=== PATIENT | male | born 1940 | race Caucasian/White ===

== ENCOUNTER 2017-01-19 14:16 | Inpatient (IN) | payer MEDICARE ==
[2017-01-19] VITALS (8 sets, daily range): BP systolic 121–158; BP diastolic 58–72; PULSE 77–118; RESP 18–36; TEMP 98.6–98.7; O2SAT 77–100
[~2017-01-19] VITALS: Ht 170.2 cm; Wt 87.5 kg
[~2017-01-19 14:16] MED LIST: ALBU8I INH; ASPI325T PO; DILT31TA PO; FLON0.053; IPRA17I INH; KCL20 PO; METO25 PO; PRED20 PO; RIVA20 PO; Z.0.OXYGEN INH
[2017-01-19] MEDS ORDERED: methylPREDNISolone SOD SUCC 125 MG/2 ML VIAL IVP ONE (14:30)
--- NOTE | 2017-01-19 14:46 | PD ---
HPI Chief Complaint: Respiratory Distress Time Seen by Provider: 14:22 Travel History International Travel<30 days: No Contact w/Intl Traveler<30days: No Traveled to known affect area: No History of Present Illness HPI Patient is a 76-year-old male with history of hypertension, A. fib, COPD, presents to emergency room for evaluation of shortness of breath. Patient reports that for the past 5 days, he has been short of breath at rest as well as on exertion. he reports that he has had a nonproductive cough with no fevers or chills. Patient at this time, reports that "I'm not feeling well." PFSH Past Medical History Arthritis: Yes Autoimmune Disease: No Blood Disorders: No Heart Rhythm Problems: No Cancer: No Cardiovascular Problems: Yes High Cholesterol: No Chest Pain: No Congestive Heart Failure: No Endocrine: No Genitourinary: Yes (KIDNEY STONES) Hypertension: Yes Immune Disorder: No Kidney Stones: Yes Musculoskeletal: Yes (BILATERAL KNEE ) Neurologic: No Psychiatric: No Reproductive: No Respiratory: Yes (SOB) Past Surgical History AICD: No Arteriovenous Shunt: No Insulin Pump: No Joint Replacement: No Pacemaker: No Social History Alcohol Use: Yes Tobacco Use: No Substance Use: No Allergies-Medications (Allergen,Severity, Reaction): Coded Allergies: Pneumococcal Vaccine (Verified Adverse Reaction, Mild, Swelling, 08/16/13) UPPER FOREARM AND ELBOW BECAME SWOLLEN AFTER BEING VACCIANTED Reported Meds & Prescriptions Reported Meds & Active Scripts Active Reported Vitamin D3 (Cholecalciferol) 1,000 Unit Tab 1,000 Units PO DAILY Tamsulosin (Tamsulosin HCl) 0.4 Mg Cap 0.4 Mg PO HS Sodium Bicarbonate 650 Mg Tab 650 Mg PO BIDPC Prednisone 20 Mg Tab 20 Mg PO DAILY Metoprolol Tartrate 50 Mg Tab 50 Mg PO BID Metoprolol Tartrate 50 Mg Tab 50 Mg PO DAILY Magnesium Oxide 400 Mg Cap Unknown Dose Losartan (Losartan Potassium) 50 Mg Tab 50 Mg PO DAILY Levothyroxine (Levothyroxine Sodium) 50 Mcg Tab 50 Mcg PO DAILY Furosemide 40 Mg Tab 40 Mg PO DAILY Atorvastatin (Atorvastatin Calcium) 40 Mg Tab 40 Mg PO HS Amlodipine (Amlodipine Besylate) 5 Mg Tab 5 Mg PO DAILY Aspirin 325 Mg Tab 325 Mg PO DAILY Review of Systems General / Constitutional: No: Fever Eyes: No: Visual changes HENT: No: Headaches Cardiovascular: No: Chest Pain or Discomfort Respiratory: Positive: Cough, Shortness of Breath, Wheezing Gastrointestinal: No: Abdominal Pain Genitourinary: No: Dysuria Musculoskeletal: No: Pain Skin: No Rash Neurologic: No: Weakness Psychiatric: No: Depression Endocrine: No: Polydipsia Hematologic/Lymphatic: No: Easy Bruising Physical Exam Narrative GENERAL: Moderate distress SKIN: Focused skin assessment warm/dry. HEAD: Atraumatic. Normocephalic. EYES: Pupils equal and round. No scleral icterus. No injection or drainage. ENT: No nasal bleeding or discharge. Mucous membranes pink and moist. NECK: Trachea midline. No JVD. CARDIOVASCULAR: Regular rate and rhythm. No murmur appreciated. RESPIRATORY: No accessory muscle use. Clear to auscultation. Scattered wheezing , patient with a pulse ox of 77% on room air GASTROINTESTINAL: Abdomen soft, non-tender, nondistended. Hepatic and splenic margins not palpable. MUSCULOSKELETAL: No obvious deformities. No clubbing. No cyanosis. No edema. NEUROLOGICAL: Awake and alert. No obvious cranial nerve deficits. Motor grossly within normal limits. Normal speech. PSYCHIATRIC: Appropriate mood and affect; insight and judgment normal. Data Data Last Documented VS Vital Signs Date Time Temp Pulse Resp B/P Pulse Ox O2 Delivery O2 Flow Rate FiO2 01/19/17 14:55 100 50 01/19/17 14:38 138/72 01/19/17 14:38 Nasal Cannula 3 01/19/17 14:31 98.7 104 30 Orders Complete Blood Count With Diff (01/19/17 14:30) Comprehensive Metabolic Panel (01/19/17 14:30) B-Type Natriuretic Peptide (01/19/17 14:30) Act Partial Throm Time (Ptt) (01/19/17 14:30) Prothrombin Time / Inr (Pt) (01/19/17 14:30) Magnesium (Mg) (01/19/17 14:30) Ckmb (Isoenzyme) Profile (01/19/17 14:30) Troponin I (01/19/17 14:30) Arterial Blood Gas (Abg) (01/19/17 14:30) Urinalysis - C+S If Indicated (01/19/17 14:30) Influenzae A/B Antigen (01/19/17 14:30) Blood Culture (01/19/17 14:30) Iv Access Insert/Monitor (01/19/17 14:30) Electrocardiogram (01/19/17 14:30) Ecg Monitoring (01/19/17 14:30) Oximetry (01/19/17 14:30) Oxygen Administration (01/19/17 14:30) Chest, Single Ap (01/19/17 14:30) Sodium Chloride 0.9% Flush (Ns Flush) (01/19/17 14:30) Methylprednisolone So Succ Inj (Solumedr (01/19/17 14:30) Albuterol-Ipratropium Neb (Duoneb Neb) (01/19/17 14:30) Resp Bipap / Cpap Non Invas Vt (01/19/17 14:30) Lactic Acid Sepsis Protocol (01/19/17 14:39) Azithromycin Inj (Zithromax Inj) (01/19/17 15:45) Ceftriaxone Inj (Rocephin Inj) (01/19/17 15:45) Ventilation & Perfusion Scan (01/19/17 ) Us Leg Venous Doppler Bilat (01/19/17 ) Admit Order (Ed Use Only) (01/19/17 16:56) Labs Laboratory Tests Test 01/19/17 01/19/17 14:35 14:38 White Blood Count 14.4 TH/MM3 Red Blood Count 3.91 MIL/MM3 Hemoglobin 11.6 GM/DL Hematocrit 35.6 % Mean Corpuscular Volume 90.9 FL Mean Corpuscular Hemoglobin 29.6 PG Mean Corpuscular Hemoglobin 32.6 % Concent Red Cell Distribution Width 20.6 % Platelet Count 365 TH/MM3 Mean Platelet Volume 8.6 FL Neutrophils (%) (Auto) 89.0 % Lymphocytes (%) (Auto) 3.7 % Monocytes (%) (Auto) 4.3 % Eosinophils (%) (Auto) 2.1 % Basophils (%) (Auto) 0.9 % Neutrophils # (Auto) 12.9 TH/MM3 Lymphocytes # (Auto) 0.5 TH/MM3 Monocytes # (Auto) 0.6 TH/MM3 Eosinophils # (Auto) 0.3 TH/MM3 Basophils # (Auto) 0.1 TH/MM3 CBC Comment DIFF FINAL Differential Comment Prothrombin Time 12.3 SEC Prothromb Time International 1.1 RATIO Ratio Activated Partial 34.0 SEC Thromboplast Time Sodium Level 141 MEQ/L Potassium Level 3.5 MEQ/L Chloride Level 108 MEQ/L Carbon Dioxide Level 21.4 MEQ/L Anion Gap 12 MEQ/L Blood Urea Nitrogen 35 MG/DL Creatinine 2.13 MG/DL Estimat Glomerular Filtration 31 ML/MIN Rate Random Glucose 104 MG/DL Lactic Acid Level 2.2 mmol/L Calcium Level 8.7 MG/DL Magnesium Level 2.2 MG/DL Total Bilirubin 2.8 MG/DL Aspartate Amino Transf 19 U/L (AST/SGOT) Alanine Aminotransferase 24 U/L (ALT/SGPT) Alkaline Phosphatase 96 U/L Total Creatine Kinase 22 U/L Troponin I 0.02 NG/ML B-Type Natriuretic Peptide 134 PG/ML Total Protein 6.4 GM/DL Albumin 2.5 GM/DL Blood Gas Puncture Site RT RADIAL Blood Gas Patient Temperature 98.6 Blood Gas HCO3 19 mmol/L Blood Gas Base Excess -3.4 mmol/L Blood Gas Oxygen Saturation 80 % Arterial Blood pH 7.54 Arterial Blood Partial 22 mmHg Pressure CO2 Arterial Blood Partial 43 mmHG Pressure O2 Arterial Blood Oxygen Content 13.5 Vol % Arterial Blood 2.7 % Carboxyhemoglobin Arterial Blood Methemoglobin 0.7 % Blood Gas Hemoglobin 12.0 G/DL Oxygen Delivery Device ROOM AIR Blood Gas Inspired Oxygen 21 % MDM Medical Decision Making Medical Screen Exam Complete: Yes Emergency Medical Condition: Yes Interpretation(s) EKG at 1435: Sinus tach at 114bpm, qt/qtc: 339/407, no acute st or t wave changes Vital Signs Date Time Temp Pulse Resp B/P Pulse Ox O2 Delivery O2 Flow Rate FiO2 01/19/17 14:38 138/72 01/19/17 14:38 95 Nasal Cannula 3 01/19/17 14:35 95 Nasal Cannula 3 01/19/17 14:31 98.7 104 30 138/72 95 01/19/17 14:19 98.6 118 36 158/72 77 Room Air Differential Diagnosis Differential includes COPD, pneumonia, CHF, PE, arrhythmia, ACS Narrative Course Patient is a 76-year-old male who presents to emergency with complaints of shortness of breath with past 5 days. Patient presents to emergency room with a pulse ox of 77% on room air. Patient was placed on 3 liters nasal cannula - pulse ox did go up to 97%. Patient was placed on a cardiac sonographer upon arrival to the emergency room. X-ray of the chest ordered. Lab work as well as ABG, blood cultures and lactate ordered. Laboratory Tests Test 01/19/17 14:38 Blood Gas Puncture Site RT RADIAL Blood Gas Patient Temperature 98.6 Blood Gas HCO3 19 mmol/L (22-26) Blood Gas Base Excess -3.4 mmol/L (-2-2) Blood Gas Oxygen Saturation 80 % (90-100) Arterial Blood pH 7.54 (7.380-7.420) Arterial Blood Partial 22 mmHg (38-42) Pressure CO2 Arterial Blood Partial 43 mmHG Pressure O2 (61-120) Arterial Blood Oxygen Content 13.5 Vol % (12.0-20.0) Arterial Blood 2.7 % (0-4) Carboxyhemoglobin Arterial Blood Methemoglobin 0.7 % (0-2) Blood Gas Hemoglobin 12.0 G/DL (12.0-16.0) Oxygen Delivery Device ROOM AIR Blood Gas Inspired Oxygen 21 % Patient hypoxic with a paO2 43, oxy sat 80%, pH 7.54, pCO2 22, patient placed on bipap Patient feeling much better on bipap Last Impressions Chest X-Ray 01/19/17 1430 Signed Impressions: Service Date/Time: Thursday, January 19, 2017 14:34 - CONCLUSION: Cardiomegaly with bibasilar opacities potentially related to pulmonary edema. Juaquin Kirkpatrick Jr., MD X-ray of the chest shows cardiomegaly with bibasilar opacities potentially to pulmonary edema. Given patient's cough for the past 5 days, I do think the patient has pneumonia. Patient has been pancultured, will give a dose of azithromycin as well as Rocephin. Laboratory Tests Test 01/19/17 01/19/17 14:35 14:38 White Blood Count 14.4 TH/MM3 (4.0-11.0) Red Blood Count 3.91 MIL/MM3 (4.50-5.90) Hemoglobin 11.6 GM/DL (13.0-17.0) Hematocrit 35.6 % (39.0-51.0) Mean Corpuscular Volume 90.9 FL (80.0-100.0) Mean Corpuscular Hemoglobin 29.6 PG (27.0-34.0) Mean Corpuscular Hemoglobin 32.6 % Concent (32.0-36.0) Red Cell Distribution Width 20.6 % (11.6-17.2) Platelet Count 365 TH/MM3 (150-450) Mean Platelet Volume 8.6 FL (7.0-11.0) Neutrophils (%) (Auto) 89.0 % (16.0-70.0) Lymphocytes (%) (Auto) 3.7 % (9.0-44.0) Monocytes (%) (Auto) 4.3 % (0.0-8.0) Eosinophils (%) (Auto) 2.1 % (0.0-4.0) Basophils (%) (Auto) 0.9 % (0.0-2.0) Neutrophils # (Auto) 12.9 TH/MM3 (1.8-7.7) Lymphocytes # (Auto) 0.5 TH/MM3 (1.0-4.8) Monocytes # (Auto) 0.6 TH/MM3 (0-0.9) Eosinophils # (Auto) 0.3 TH/MM3 (0-0.4) Basophils # (Auto) 0.1 TH/MM3 (0-0.2) CBC Comment DIFF FINAL Differential Comment Prothrombin Time 12.3 SEC (9.8-11.6) Prothromb Time International 1.1 RATIO Ratio Activated Partial 34.0 SEC Thromboplast Time (24.3-30.1) Sodium Level 141 MEQ/L (136-145) Potassium Level 3.5 MEQ/L (3.5-5.1) Chloride Level 108 MEQ/L (98-107) Carbon Dioxide Level 21.4 MEQ/L (21.0-32.0) Anion Gap 12 MEQ/L (5-15) Blood Urea Nitrogen 35 MG/DL (7-18) Creatinine 2.13 MG/DL (0.60-1.30) Estimat Glomerular Filtration 31 ML/MIN (>89) Rate Random Glucose 104 MG/DL (74-106) Lactic Acid Level 2.2 mmol/L (0.4-2.0) Calcium Level 8.7 MG/DL (8.5-10.1) Magnesium Level 2.2 MG/DL (1.5-2.5) Total Bilirubin 2.8 MG/DL (0.2-1.0) Aspartate Amino Transf 19 U/L (15-37) (AST/SGOT) Alanine Aminotransferase 24 U/L (12-78) (ALT/SGPT) Alkaline Phosphatase 96 U/L (45-117) Total Creatine Kinase 22 U/L (39-308) Troponin I 0.02 NG/ML (0.02-0.05) Total Protein 6.4 GM/DL (6.4-8.2) Albumin 2.5 GM/DL (3.4-5.0) Blood Gas Puncture Site RT RADIAL Blood Gas Patient Temperature 98.6 Blood Gas HCO3 19 mmol/L (22-26) Blood Gas Base Excess -3.4 mmol/L (-2-2) Blood Gas Oxygen Saturation 80 % (90-100) Arterial Blood pH 7.54 (7.380-7.420) Arterial Blood Partial 22 mmHg (38-42) Pressure CO2 Arterial Blood Partial 43 mmHG Pressure O2 (61-120) Arterial Blood Oxygen Content 13.5 Vol % (12.0-20.0) Arterial Blood 2.7 % (0-4) Carboxyhemoglobin Arterial Blood Methemoglobin 0.7 % (0-2) Blood Gas Hemoglobin 12.0 G/DL (12.0-16.0) Oxygen Delivery Device ROOM AIR Blood Gas Inspired Oxygen 21 % Last Impressions Chest X-Ray 01/19/17 1430 Signed Impressions: Service Date/Time: Thursday, January 19, 2017 14:34 - CONCLUSION: Cardiomegaly with bibasilar opacities potentially related to pulmonary edema. Juaquin Kirkpatrick Jr., MD WBC 14 4, hemoglobin 11.6, hematocrit 35.6, platelets 365 Sodium 141, potassium 3.5, BUN 35, creatinine 2.13 Lactic acid 2.2 Patient is hypoxic and this could be from pneumonia. Pulmonary embolism is still within the differential. Given his elevated cr, vq scan as well as doppler us of legs ordered. Will hold on anticoagulation at this time Patient has been treated for pneumonia at this time Doppler us of legs: no evidence of dvt Critical Care Narrative Aggregate critical care time was 30 minutes. Time to perform other separately billable procedures was not included in the critical care time. My time did not include minutes spent treating any other patients simultaneously or on activities that did not directly contribute to the patient's treatment. The services I provided to this patient were to treat and/or prevent clinically significant deterioration that could result in: , decompensation, deterioration I provided critical care services requiring my management, as noted below: Chart data review, documentation time, medication orders and management, vital sign assessments/reviewing monitor data, ordering and reviewing lab tests, ordering and interpreting/reviewing x-rays and diagnostic studies, care of the patient and discussion of the patient with the admitting physicians. Physician Communication Physician Communication case reviewed with dr. logan who accepts pt to service Diagnosis Primary Impression: Hypoxia Additional Impression: Pneumonia Admitting Information Admitting Physician Requests: Admit Lindsey Becker DO Jan 19, 2017 14:46
[2017-01-19 14:48] LABS: BLOOD GAS BASE EXCESS -3.4 mmol/L (-2-2); BLOOD GAS CARBOXYHEMOGLOBIN 2.7 % (0-4); BLOOD GAS HCO3 19 mmol/L (22-26); BLOOD GAS METHEMOGLOBIN 0.7 % (0-2); BLOOD GAS O2 HGB SATURATION 80 % (90-100); BLOOD GAS OXYGEN CONTENT 13.5 Vol % (12.0-20.0); BLOOD GAS PCO2 22 mmHg (38-42); BLOOD GAS PO2 43 mmHG (61-120); CRITICAL VALUE YES; DRAW SITE RT RADIAL; FIO2 21 %; NUMBER OF ARTERIAL PUNCTURES 1; OXYGEN DEVICE ROOM AIR; STAT YES; TEMP CORR TO 98.6
[2017-01-19] MEDS: RESP: ALBUTEROL 2.5 MG/IPRATROPIUM 0.5 MG NEB (SCH) INH ×2 (14:57→14:58)
[2017-01-19] MEDS: SODIUM CHLORIDE 0.9% FLUSH 10 ML FLUSH IVF PRN ×3 (15:24→17:22)
--- NOTE | 2017-01-19 15:28 | RADRPT ---
EXAM DATE/TIME: 01/19/2017 14:34 [facility] COMPARISON: No previous studies available for comparison. INDICATIONS : Short of breath. MEDICAL HISTORY : Vasculitis SURGICAL HISTORY : None. ENCOUNTER: Initial ACUITY: 1 week PAIN SCORE: 0/10 LOCATION: Bilateral chest FINDINGS: A single portable frontal view the chest shows patchy bibasilar infiltrates which are mixed interstit ial and intra-alveolar. No effusions. Heart is mildly enlarged with a left ventricular prominence. Abhilash ny structures are unremarkable. CONCLUSION: Cardiomegaly with bibasilar opacities potentially related to pulmonary edema. Juaquin Kirkpatrick Jr., MD on January 19, 2017 at 15:26 Board Certified Radiologist. This report was verified electronically.
[2017-01-19] MEDS ORDERED: cefTRIAXone INJ 1,000 MG in SODIUM CHLORIDE 0.9% INJ 100 ML IV ONE (15:45)
[2017-01-19] MEDS ORDERED: AZITHROMYCIN INJ 500 MG in SODIUM CHLOR 0.9% 250 ML INJ 250 ML IV ONE (15:45)
[2017-01-19 15:58] LABS: AUTOMATED NEUTROPHIL # 12.9 TH/MM3 (1.8-7.7); BASOPHIL # 0.1 TH/MM3 (0-0.2); BASOPHIL % 0.9 % (0.0-2.0); EOSINOPHIL # 0.3 TH/MM3 (0-0.4); EOSINOPHIL % 2.1 % (0.0-4.0); HEMATOCRIT 35.6 % (39.0-51.0); HEMO FLAGS DIFF FINAL; LYMPH % 3.7 % (9.0-44.0); LYMPHOCYTE # 0.5 TH/MM3 (1.0-4.8); MEAN CELL VOLUME 90.9 FL (80.0-100.0); MEAN CORPUSCULAR HEMOGLOBIN 29.6 PG (27.0-34.0); MEAN CORPUSCULAR HGB CONC 32.6 % (32.0-36.0); MONO % 4.3 % (0.0-8.0); PLATELET COUNT 365 TH/MM3 (150-450); RED BLOOD COUNT 3.91 MIL/MM3 (4.50-5.90); RED CELL DISTRIBUTION WIDTH 20.6 % (11.6-17.2); WHITE BLOOD COUNT 14.4 TH/MM3 (4.0-11.0)
[2017-01-19 16:13] LABS: ALT (GPT) 24 U/L (12-78); ANION GAP 12 MEQ/L (5-15); AST (GOT) 19 U/L (15-37); BICARBONATE 21.4 MEQ/L (21.0-32.0); BLOOD UREA NITROGEN 35 MG/DL (7-18); CHLORIDE 108 MEQ/L (98-107); GLOMERULAR FILTRATION RATE 31 ML/MIN (>89); MAGNESIUM 2.2 MG/DL (1.5-2.5); POTASSIUM 3.5 MEQ/L (3.5-5.1); SODIUM (NA) 141 MEQ/L (136-145)
[2017-01-19 16:14] LABS: INTERNATIONAL NORMALIZED RATIO 1.1 RATIO; PROTHROMBIN TIME - PATIENT 12.3 SEC (9.8-11.6)
[2017-01-19 16:16] LABS: ALKALINE PHOSPHATASE 96 U/L (45-117); TOTAL BILIRUBIN ADULT 2.8 MG/DL (0.2-1.0)
[2017-01-19 16:20] LABS: CREATINE KINASE 22 U/L (39-308)
[2017-01-19] MEDS ORDERED: FURO40TA PO (16:34)
[2017-01-19] MEDS ORDERED: LOSA50TA PO (16:34)
[2017-01-19] MEDS ORDERED: AMLO5TAB2 PO (16:34)
[2017-01-19] MEDS ORDERED: LEVO50TA4 PO (16:34)
[2017-01-19] MEDS ORDERED: ASPI325T PO (16:34)
[2017-01-19] MEDS ORDERED: ATOR40TA16 PO (16:34)
[2017-01-19] MEDS ORDERED: SODI650T PO (16:35)
[2017-01-19] MEDS ORDERED: METO50TA PO ×2 (16:35)
[2017-01-19] MEDS ORDERED: PRED20 PO (16:35)
[2017-01-19] MEDS ORDERED: MAGN400C2 (16:35)
[2017-01-19] MEDS ORDERED: TAMS0.4C4 PO (16:35)
[2017-01-19] MEDS ORDERED: VITA100064 PO (16:35)
[2017-01-19 17:23] LABS: LACTIC ACID GHOST NOT REPORTABLE
--- NOTE | 2017-01-19 17:50 | RADRPT ---
EXAM DATE/TIME: 01/19/2017 17:12 [facility] COMPARISON: No previous studies available for comparison. INDICATIONS : Bilateral leg pain and shortness of breath. MEDICAL HISTORY : Hypertension. Chronic obstructive pulmonary disease. Shortness of breath. Dyspea. Kidney stones. Arthritis. Atrial fibrillation. SURGICAL HISTORY : None. ENCOUNTER: Initial ACUITY: 2 day PAIN SCORE: 7/10 LOCATION: Bilateral legs. TECHNIQUE: Venous ultrasound of the left and right leg was performed from the inguinal ligament to the proximal calf. Real-time, color Doppler and spectral tracing, compression and augmentation techniques were us ed. FINDINGS: RIGHT LEG: There is normal compressibility of the deep venous system from the inguinal region to the proximal ca lf. No echogenic clot is seen in the lumen of the common femoral, femoral, popliteal, and posterior tibial veins. There is a normal response of the venous system to proximal and distal augmentation an d respiration. LEFT LEG: There is normal compressibility of the deep venous system from the inguinal region to the proximal ca lf. No echogenic clot is seen in the lumen of the common femoral, femoral, popliteal, and posterior tibial veins. There is a normal response of the venous system to proximal and distal augmentation an d respiration. CONCLUSION: No evidence of deep venous thrombosis within the bilateral lower extremities. Roverto Cespedes MD on January 19, 2017 at 17:48 Board Certified Radiologist. This report was verified electronically.
--- NOTE | 2017-01-19 18:13 | HHI.HP ---
HPI Service [facility] Primary Care Physician Maciej Garvin Admission Diagnosis Sepsis with hypoxia Diagnoses: (1) Community acquired bacterial pneumonia (2) Sepsis (3) Respiratory failure with hypoxia (4) Respiratory failure, acute Chief Complaint: Shortness of breath Travel History International Travel<30 Days: No Contact w/Intl Traveler <30 Da: No Traveled to Known Affected Are: No Sepsis Criteria SIRS Criteria (2 or more): Heart rate over 90, WBC > 54293, < 4000 or > 10% bands Sepsis Criteria (SIRS+source): Infect source susp/known Severe Sepsis (+one): Lactate >2 Criteria Outcome: Meets severe sepsis criteria History of Present Illness 76 yrs old man with a PMH of COPD, HTN came to the ED for evaluation of worsening symptoms of shortness of breath x several weeks duration associated with dry nonproductive cough without any associated chest pain or febrile episode.Patient denies any BLE edema. CXR in the ED reveals Cardiomegaly with bibasilar opacities potentially related to pulmonary edema. Vitals on admission T 98.6, HR 118, RR 36, BP 158/72 and 77% on RA. Abnormal labs include BNP 134, Lactic acid 2.2, WBC of 14.4 and Bun/Cr 35/2.13. In the ED patient was placed on a BIPAP with improvement of dyspnea Review of Systems Except as stated in HPI: all other systems reviewed are Neg Past Family Social History Past Medical History Arthritis: Yes Cardiovascular Problems: Yes Genitourinary: Yes (KIDNEY STONES) Hypertension: Yes Kidney Stones: Yes Musculoskeletal: Yes (BILATERAL KNEE ) Past Surgical History No previous surgeries Reported Medications Vitamin D3 (Cholecalciferol) 1,000 Unit Tab 1,000 Units PO DAILY Tamsulosin (Tamsulosin HCl) 0.4 Mg Cap 0.4 Mg PO HS Sodium Bicarbonate 650 Mg Tab 650 Mg PO BIDPC Prednisone 20 Mg Tab 20 Mg PO DAILY Metoprolol Tartrate 50 Mg Tab 50 Mg PO BID Metoprolol Tartrate 50 Mg Tab 50 Mg PO DAILY Magnesium Oxide 400 Mg Cap Unknown Dose Losartan (Losartan Potassium) 50 Mg Tab 50 Mg PO DAILY Levothyroxine (Levothyroxine Sodium) 50 Mcg Tab 50 Mcg PO DAILY Furosemide 40 Mg Tab 40 Mg PO DAILY Atorvastatin (Atorvastatin Calcium) 40 Mg Tab 40 Mg PO HS Amlodipine (Amlodipine Besylate) 5 Mg Tab 5 Mg PO DAILY Aspirin 325 Mg Tab 325 Mg PO DAILY Allergies: Coded Allergies: Pneumococcal Vaccine (Verified Adverse Reaction, Mild, Swelling, 08/16/13) UPPER FOREARM AND ELBOW BECAME SWOLLEN AFTER BEING VACCIANTED Family History Denies any family history of heart disease Social History Alcohol Use: Yes Tobacco Use: No Substance Use: No Physical Exam Vital Signs Vital Signs Date Time Temp Pulse Resp B/P Pulse Ox O2 Delivery O2 Flow Rate FiO2 01/19/17 14:55 100 50 01/19/17 14:38 138/72 01/19/17 14:38 95 Nasal Cannula 3 01/19/17 14:35 95 Nasal Cannula 3 01/19/17 14:31 98.7 104 30 138/72 95 01/19/17 14:19 98.6 118 36 158/72 77 Room Air Physical Exam GENERAL: This is a well-nourished, well-developed patient, in no apparent distress. SKIN: No rashes, ecchymoses or lesions. Cool and dry. HEAD: Atraumatic. Normocephalic. No temporal or scalp tenderness. EYES: Pupils equal round and reactive. Extraocular motions intact. No scleral icterus. No injection or drainage. ENT: Nose without bleeding, purulent drainage or septal hematoma. Throat without erythema, tonsillar hypertrophy or exudate. Uvula midline. Airway patent. NECK: Trachea midline. No JVD or lymphadenopathy. Supple, nontender, no meningeal signs. CARDIOVASCULAR: Regular rate and rhythm with II/ LAZARUS RESPIRATORY: Clear to auscultation. Breath sounds equal bilaterally. No wheezes , rales, or rhonchi. GASTROINTESTINAL: Abdomen soft, non-tender, nondistended. No hepato-splenomegaly , or palpable masses. No guarding. MUSCULOSKELETAL: Extremities without clubbing, cyanosis, or edema. No joint tenderness, effusion, or edema noted. No calf tenderness. Negative Homans sign bilaterally. NEUROLOGICAL: Awake and alert. Cranial nerves II through XII intact. Motor and sensory grossly within normal limits. Five out of 5 muscle strength in all muscle groups. Normal speech. Laboratory Laboratory Tests Test 01/19/17 01/19/17 14:35 14:38 White Blood Count 14.4 Red Blood Count 3.91 Hemoglobin 11.6 Hematocrit 35.6 Mean Corpuscular Volume 90.9 Mean Corpuscular Hemoglobin 29.6 Mean Corpuscular Hemoglobin 32.6 Concent Red Cell Distribution Width 20.6 Platelet Count 365 Mean Platelet Volume 8.6 Neutrophils (%) (Auto) 89.0 Lymphocytes (%) (Auto) 3.7 Monocytes (%) (Auto) 4.3 Eosinophils (%) (Auto) 2.1 Basophils (%) (Auto) 0.9 Neutrophils # (Auto) 12.9 Lymphocytes # (Auto) 0.5 Monocytes # (Auto) 0.6 Eosinophils # (Auto) 0.3 Basophils # (Auto) 0.1 CBC Comment DIFF FINAL Differential Comment Prothrombin Time 12.3 Prothromb Time International 1.1 Ratio Activated Partial 34.0 Thromboplast Time Sodium Level 141 Potassium Level 3.5 Chloride Level 108 Carbon Dioxide Level 21.4 Anion Gap 12 Blood Urea Nitrogen 35 Creatinine 2.13 Estimat Glomerular Filtration 31 Rate Random Glucose 104 Lactic Acid Level 2.2 Calcium Level 8.7 Magnesium Level 2.2 Total Bilirubin 2.8 Aspartate Amino Transf 19 (AST/SGOT) Alanine Aminotransferase 24 (ALT/SGPT) Alkaline Phosphatase 96 Total Creatine Kinase 22 Troponin I 0.02 B-Type Natriuretic Peptide 134 Total Protein 6.4 Albumin 2.5 Blood Gas Puncture Site RT RADIAL Blood Gas Patient Temperature 98.6 Blood Gas HCO3 19 Blood Gas Base Excess -3.4 Blood Gas Oxygen Saturation 80 Arterial Blood pH 7.54 Arterial Blood Partial 22 Pressure CO2 Arterial Blood Partial 43 Pressure O2 Arterial Blood Oxygen Content 13.5 Arterial Blood 2.7 Carboxyhemoglobin Arterial Blood Methemoglobin 0.7 Blood Gas Hemoglobin 12.0 Oxygen Delivery Device ROOM AIR Blood Gas Inspired Oxygen 21 Date/Time Procedure Status Source Growth 01/19/17 14:55 Influenza Types A,B Antigen (GAURAV) - Final Complete Nasal Aspirate NEGATIVE FOR FLU A AND B ANTIGEN.... 01/19/17 14:50 Aerobic Blood Culture Received Blood Peripheral Pending 01/19/17 14:50 Anaerobic Blood Culture Received Blood Peripheral Pending Result Diagram: 01/19/17 1435 01/19/17 1435 Imaging Last Impressions Chest X-Ray 01/19/17 1430 Signed Impressions: Service Date/Time: Georges, January 19, 2017 14:34 - CONCLUSION: Cardiomegaly with bibasilar opacities potentially related to pulmonary edema. Juaquin Kirkpatrick Jr., MD Lower Extremity Ultrasound 01/19/17 0000 Signed Impressions: Service Date/Time: Thursday, January 19, 2017 17:12 - CONCLUSION: No evidence of deep venous thrombosis within the bilateral lower extremities. Roverto Cespedes MD Assessment and Plan Problem List: (1) Sepsis ICD Code: A41.9 Status: Acute (2) Community acquired bacterial pneumonia ICD Code: J15.9 Status: Acute (3) Respiratory failure with hypoxia ICD Code: J96.91 Status: Acute (4) Respiratory failure, acute ICD Code: J96.00 Status: Acute Assessment and Plan 76-year-old man with Severe sepsis: Heart rate over 90, WBC > 71474, < 4000 or > 10% bands;Lactate >2 ;Infect source susp/known(lung) Status post azithromycin and Rocephin IV 1 in ED, continue with antibiotics pending culture report Community-acquired bacteria pneumonia Chest x-ray noted and review by me with finding of bibasilar opacities s/p IV azithromycin and Rocephin 1, continue antibiotics Check sputum culture Acute respiratory failure with hypoxia Likely secondary to above infectious processes BiPAP when necessary DuoNeb when necessary Rule out PE with VQ scan as CTA contraindicated due to elevated BUN/ creatinine Acute mild heart failure, unknown type Chest x-ray noted and review by me with finding of possible pulmonary edema Mildly elevated BNP Lasix IV 20 mg daily Check 2-D echo Acute renal failure However secondary to mild acute heart failure; we will hold on IV fluid hydration Monitor BUN and creatinine Other chronic medical conditions Resume outpatient medications DVT prophylaxis: Bilateral SCDs Code Status Full code Discussed Condition With Patient, ED physician Physician Certification 2 Midnight Certification Type: Admission for Inpatient Services Order for Inpatient Services The services are ordered in accordance with Medicare regulations or non- Medicare payer requirements, as applicable. In the case of services not specified as inpatient-only, they are appropriately provided as inpatient services in accordance with the 2-midnight benchmark. Estimated LOS (days): 2 days is the estimated time the patient will need to remain in the hospital, assuming treatment plan goals are met and no additional complications. Post-Hospital Plan: Not yet determined John Marcelo MD Jan 19, 2017 18:13
[2017-01-19] MEDS ORDERED: ONDANSETRON HCL 4 MG/2 ML VIAL IVP PRN (18:15)
[2017-01-19] MEDS ORDERED: MAGNESIUM HYDROXIDE SUSP 30 ML CUP PO PRN (18:15)
[2017-01-19] MEDS ORDERED: SODIUM CHLORIDE 0.9% FLUSH 10 ML FLUSH IV FLUSH PRN (18:15)
[2017-01-19] MEDS ORDERED: TEMAZEPAM 15 MG CAP PO PRN (18:15)
[2017-01-19] MEDS ORDERED: NALOXONE HCL 0.4 MG/ML AMP IV PRN (18:15)
[2017-01-19] MEDS ORDERED: ACETAMINOPHEN 325 MG TAB PO PRN ×2 (18:15)
--- NOTE | 2017-01-19 19:18 | RADRPT ---
EXAM DATE/TIME: 01/19/2017 18:14 [place] COMPARISON: LUNG VENTILATION & PERFUSION SCAN, August 13, 2013, 13:54. INDICATIONS : Dyspnea x 5 days. DOSE: 1.5 Tc99m DTPA 8.8 Tc99m MAA MEDICAL HISTORY : Hypertension. Chronic obstructive pulmonary disease. A-Fib. SURGICAL HISTORY : None. ENCOUNTER: Subsequent ACUITY: 4 - 6 days PAIN SCALE: 0/10 LOCATION: chest TECHNIQUE: Following five minutes of tidal breathing of DTPA aerosol, planar images of the lungs were performed in eight projections. The patient was then injected with MAA, and eight-view perfusion scan was perf ormed. FINDINGS: There is a homogeneous pattern of aerosol delivery to the periphery of both lungs. No focal ventilat ory defects are seen. The perfusion lung scan demonstrates a homogenous pattern of uptake in both lungs. No segmental or s ubsegmental defects are seen. CONCLUSION: Low probability for pulmonary embolism. John Gifford MD on January 19, 2017 at 19:16 Board Certified Radiologist. This report was verified electronically.
[2017-01-19] MEDS: TAMSULOSIN HCL 0.4 MG CAP PO SCH (21:44)
[2017-01-19] MEDS: SODIUM CHLORIDE 0.9% FLUSH 10 ML FLUSH IV FLUSH SCH (21:44)
[2017-01-19] MEDS: LACTOBACILLUS ACIDOPHILUS TAB PO SCH (21:44)
[2017-01-19] MEDS: METOPROLOL TARTRATE 50 MG TAB PO SCH (21:45)
[2017-01-19] MEDS: ATORVASTATIN 40 MG TAB PO SCH (21:45)
[2017-01-20] VITALS (19 sets, daily range): BP systolic 125–141; BP diastolic 58–84; PULSE 63–94; RESP 16–21; TEMP 97.7–98.7; O2SAT 95–99
[2017-01-20 01:59] LABS: BACTERIA, URINE RARE /hpf; BLOOD, URINE SMALL (NEG); GLUCOSE,URINE 70 mg/dL (NEG); HYALINE CAST, URINE 20 /lpf (RARE); KETONE, URINE NEG (NEG); MUCUS URINE FEW /lpf (OCC); NITRITE,URINE NEG (NEG); SQUAMOUS EPITHELIAL CELL URINE 3 /hpf (0-5); URINE COLOR YELLOW (YELLW/STRAW)
[2017-01-20 02:00] LABS: COMMENT (UR) CULTURE INDICATED; CULTURE IF INDICATED CULTURE INDICATED
[2017-01-20 04:47] LABS: AUTOMATED NEUTROPHIL # 10.3 TH/MM3 (1.8-7.7); BASOPHIL # 0.1 TH/MM3 (0-0.2); BASOPHIL % 0.7 % (0.0-2.0); EOSINOPHIL % 0.1 % (0.0-4.0); HEMATOCRIT 31.2 % (39.0-51.0); LYMPH % 3.4 % (9.0-44.0); LYMPHOCYTE # 0.4 TH/MM3 (1.0-4.8); MEAN CELL VOLUME 90.3 FL (80.0-100.0); MEAN CORPUSCULAR HEMOGLOBIN 30.3 PG (27.0-34.0); MEAN CORPUSCULAR HGB CONC 33.6 % (32.0-36.0); MONO % 2.2 % (0.0-8.0); NEUT % 93.6 % (16.0-70.0); PLATELET COUNT 287 TH/MM3 (150-450); RED BLOOD COUNT 3.46 MIL/MM3 (4.50-5.90)
[2017-01-20 04:55] LABS: HEMO FLAGS AUTO DIFF
[2017-01-20 05:07] LABS: ALKALINE PHOSPHATASE 85 U/L (45-117); ALT (GPT) 20 U/L (12-78); ANION GAP 11 MEQ/L (5-15); AST (GOT) 13 U/L (15-37); BICARBONATE 19.6 MEQ/L (21.0-32.0); BLOOD UREA NITROGEN 48 MG/DL (7-18); CHLORIDE 110 MEQ/L (98-107); GLOMERULAR FILTRATION RATE 25 ML/MIN (>89); POTASSIUM 3.9 MEQ/L (3.5-5.1); SODIUM (NA) 141 MEQ/L (136-145); TOTAL BILIRUBIN ADULT 1.4 MG/DL (0.2-1.0)
[2017-01-20 06:05] LABS: BANDS 18 % (0-6); DOHLE BODIES PRESENT (NONE SEEN); METAMYELOCYTES 2 % (0-1); NEUTROPHIL # MANUAL DIFF 10.3 TH/MM3 (1.8-7.7); PLATELET ESTIMATE SMEAR NORMAL (NORMAL); PLATELET MORPHOLOGY NORMAL (NORMAL); POLYS (SEG NEUTROPHILS) 74 % (16-70); SCAN/DIFF FINAL DIFF MANUAL; WBC DIFF SAMPLE 100
[2017-01-20 06:06] LABS: ACANTHOCYTES OCC (NORMAL); KERATOCYTES OCC (NORMAL); OVALOCYTES 1+ (NORMAL)
[2017-01-20] MEDS: LEVOTHYROXINE SODIUM 50 MCG TAB PO SCH (06:07)
[2017-01-20] MEDS: METOPROLOL TARTRATE 50 MG TAB PO SCH ×2 (08:58→20:08)
[2017-01-20] MEDS: ASPIRIN 325 MG TAB PO SCH (08:58)
[2017-01-20] MEDS: amLODIPine BESYLATE 5 MG TAB PO SCH (08:58)
[2017-01-20] MEDS: LOSARTAN 50 MG TAB PO SCH (08:58)
[2017-01-20] MEDS: POTASSIUM CHLORIDE 10 MEQ CONTROLLED RELEASE TAB PO SCH (08:58)
[2017-01-20] MEDS: predniSONE 20 MG TAB PO SCH (08:59)
[2017-01-20] MEDS: LACTOBACILLUS ACIDOPHILUS TAB PO SCH ×2 (08:59→20:08)
[2017-01-20] MEDS: SODIUM CHLORIDE 0.9% FLUSH 10 ML FLUSH IV FLUSH SCH ×2 (08:59→20:09)
[2017-01-20] MEDS ORDERED: FUROSEMIDE 20 MG/2 ML VIAL IV PUSH SCH ×2 (09:00)
--- NOTE | 2017-01-20 10:32 | HHI.PR ---
Subjective Remarks Follow-up respiratory failure with hypoxia/sepsis/community-acquired bacteria pneumonia 01/20/17-patient seen and examined; reports significant improvement or shortness of breath and currently on 2 L nasal cannula. Denies any chest pain. No acute event overnight. Vitals stable Objective Vitals Vital Signs Date Time Temp Pulse Resp B/P Pulse Ox O2 Delivery O2 Flow Rate FiO2 01/20/17 07:33 97.7 73 20 140/67 97 Nasal Cannula 3 01/20/17 07:05 97 Nasal Cannula 3.00 01/20/17 04:04 98 Nasal Cannula 3.00 01/20/17 04:00 72 18 138/71 98 Nasal Cannula 3 01/20/17 01:00 63 16 128/63 98 Nasal Cannula 3 01/20/17 00:00 65 16 125/58 96 Nasal Cannula 3 01/19/17 22:00 77 18 121/58 100 Nasal Cannula 3 01/19/17 21:00 87 18 135/68 100 Nasal Cannula 3 01/19/17 20:00 84 18 126/61 95 Nasal Cannula 3 01/19/17 19:00 84 18 121/64 93 Nasal Cannula 3 01/19/17 14:55 100 50 01/19/17 14:38 138/72 01/19/17 14:38 95 Nasal Cannula 3 01/19/17 14:38 95 Nasal Cannula 3.00 01/19/17 14:35 95 Nasal Cannula 3 01/19/17 14:31 98.7 104 30 138/72 95 01/19/17 14:19 98.6 118 36 158/72 77 Room Air I/O 01/19/17 01/19/17 01/19/17 01/20/17 01/20/17 01/20/17 07:00 15:00 23:00 07:00 15:00 23:00 Output Total 300 ml Balance -300 ml Output Urine Total 300 ml Result Diagram: 01/20/17 0407 01/20/17 0407 Imaging Last Impressions Chest X-Ray 01/19/17 1430 Signed Impressions: Service Date/Time: Thursday, January 19, 2017 14:34 - CONCLUSION: Cardiomegaly with bibasilar opacities potentially related to pulmonary edema. Juaquin Kirkpatrick Jr., MD Lung Scan- Nuclear Medicine 01/19/17 0000 Signed Impressions: Service Date/Time: Thursday, January 19, 2017 18:14 - CONCLUSION: Low probability for pulmonary embolism. John Gifford MD Lower Extremity Ultrasound 01/19/17 0000 Signed Impressions: Service Date/Time: Thursday, January 19, 2017 17:12 - CONCLUSION: No evidence of deep venous thrombosis within the bilateral lower extremities. Rovreto Cespedes MD Objective Remarks GENERAL: NAD SKIN: Warm and dry. HEAD: Normocephalic. EYES: No scleral icterus. No injection or drainage. NECK: Supple, trachea midline. No JVD or lymphadenopathy. CARDIOVASCULAR: Regular rate and rhythm with II/ LAZARUS RESPIRATORY: Breath sounds equal bilaterally. No accessory muscle use. GASTROINTESTINAL: Abdomen soft, non-tender, nondistended. MUSCULOSKELETAL: No cyanosis, or edema. BACK: Nontender without obvious deformity. No CVA tenderness. A/P Problem List: (1) Sepsis ICD Code: A41.9 Status: Acute (2) Community acquired bacterial pneumonia ICD Code: J15.9 Status: Acute (3) Respiratory failure with hypoxia ICD Code: J96.91 Status: Acute (4) Respiratory failure, acute ICD Code: J96.00 Status: Acute Assessment and Plan 76-year-old man with Severe sepsis: Heart rate over 90, WBC > 06599, < 4000 or > 10% bands;Lactate >2 ;Infect source susp/known(lung) Status post azithromycin and Rocephin IV 1 in ED, continue with antibiotics pending culture report Community-acquired bacteria pneumonia Chest x-ray with finding of bibasilar opacities s/p IV azithromycin and Rocephin 1, continue antibiotics sputum culture pending Acute respiratory failure with hypoxia Improved BiPAP when necessary DuoNeb when necessary VQ scan low probability for PE Acute mild heart failure, unknown type Chest x-ray with finding of possible pulmonary edema Mildly elevated BNP Lasix IV 20 mg daily 2-D echo pending Acute renal failure-worsening However secondary to mild acute heart failure; we will hold on IV fluid hydration Monitor BUN and creatinine May consider low-dose IV fluid hydration 24 hours Other chronic medical conditions Continue outpatient medications DVT prophylaxis: Bilateral SCDs John Marcelo MD Jan 20, 2017 10:32
--- NOTE | 2017-01-20 14:24 | EKG ---
Date Performed: 01/19/2017 Time Performed: 14:35:41 PTAGE: 76 years EKG: SINUS TACHYCARDIA INFERIOR MYOCARDIAL INFARCTION INFERIOR Q WAVES ARE MORE PROMINENT SINCE PRIOR TRACING ABNORMAL ECG PREVIOUS TRACING : DOCTOR: Aly Epstein Interpretating Date/Time 01/20/2017 14:22:15
[2017-01-20] MEDS ORDERED: AZITHROMYCIN INJ 500 MG in SODIUM CHLOR 0.9% 250 ML INJ 250 ML IV SCH (15:00)
[2017-01-20] MEDS ORDERED: cefTRIAXone INJ 1,000 MG in SODIUM CHLORIDE 0.9% INJ 100 ML IV SCH (16:00)
--- NOTE | 2017-01-20 18:23 | ECHRPT ---
Indication: Heart failure, unspecified CONCLUSIONS Normal left ventricular size. Mild concentric left ventricular hypertrophy. The left ventricular systolic function is low normal with an estimated ejection fraction in the rang e of 50- 55%. The left atrial size is qcne-kl-qgtwjbecci dilated. Mitral annular calcification is present. Mild thickening of the mitral valve leaflets. Vkjy-tc-ykwzoauv mitral valve regurgitation. Mild aortic valve stenosis. Aortic valve mean gradient is 15 mmHg. Aortic valve area is 2.08 cm by VTI Mild aortic valve regurgitation. There is a mobile calcified echodensity noted on the subvalvular mitral valve apparatus consistent w ith possible vegetaion vs sclerotic or partial ruptured chordae tendinae, clinical correlation is recomm ended or transesophageal echocardiogram should be considered. BP: / HR: Rhythm: MEASUREMENTS (Male / Female) Normal Values Technical Quality: 2D ECHO LV Diastolic Diameter PLAX 5.6 cm 4.2 - 5.9 / 3.9 - 5.3 cm LV Systolic Diameter PLAX 4.4 cm IVS Diastolic Thickness 0.9 cm 0.6 - 1.0 / 0.6 - 0.9 cm LVPW Diastolic Thickness 0.7 cm 0.6 - 1.0 / 0.6 - 0.9 cm LV Relative Wall Thickness 0.3 LVOT Diameter 2.0 cm LA Systolic Diameter LX 4.4 cm 3.0 - 4.0 / 2.7 - 3.8 cm M-MODE Aortic Root Diameter MM 3.5 cm AV Cusp Separation MM 1.9 cm DOPPLER AV Peak Velocity 255.0 cm/s AV Peak Gradient 26.0 mmHg AV Mean Gradient 15.0 mmHg AV Velocity Time Integral 65.9 cm LVOT Peak Velocity 113.0 cm/s LVOT Peak Gradient 5.1 mmHg LVOT Velocity Time Integral 35.9 cm AV Area Cont Eq vti 1.7 cm AV Area Cont Eq pk 1.4 cm Mitral E Point Velocity 56.8 cm/s Mitral A Point Velocity 115.0 cm/s Mitral E to A Ratio 0.5 LV E' Lateral Velocity 7.7 cm/s Mitral E to LV E' Lateral Ratio 7.4 TR Peak Velocity 225.0 cm/s TR Peak Gradient 20.3 mmHg FINDINGS LEFT VENTRICLE Normal left ventricular size. Mild concentric left ventricular hypertrophy. The left ventricular systolic function is low normal with an estimated ejection fraction in the rang e of 50- 55%. RIGHT VENTRICLE Normal right ventricular size and systolic function. LEFT ATRIUM The left atrial size is ujak-he-roqidoyoky dilated. RIGHT ATRIUM The right atrial size is normal. ATRIAL SEPTUM Normal atrial septal thickness without atrial level shunting by limited color doppler interrogation. AORTA The aortic root and proximal ascending aorta are normal in size on limited imaging. MITRAL VALVE Mitral annular calcification is present. Mild thickening of the mitral valve leaflets. Kbin-im-jkgffxtj mitral valve regurgitation. There is a mobile calcified echodensity noted on the subvalvular mitral valve apparatus consistent w ith possible vegetaion vs sclerotic or partial ruptured chordae tendinae, clinical correlation is recomm ended or transesophageal echocardiogram should be considered. AORTIC VALVE Mild aortic valve stenosis. Aortic valve mean gradient is 15 mmHg. Aortic valve area is 2.08 cm by VTI Mild aortic valve regurgitation. TRICUSPID VALVE The estimated pulmonary arterial pressure is 25 mmHg. PULMONARY VALVE The pulmonary valve is not well visualized. VESSELS The inferior vena cava is normal in size. PERICARDIUM No pericardial effusion. Dereck Vinson MD, FACC (Electronically Signed) Final Date:20 January 2017 18:22
[2017-01-20] MEDS: ATORVASTATIN 40 MG TAB PO SCH (20:08)
[2017-01-20] MEDS: TAMSULOSIN HCL 0.4 MG CAP PO SCH (20:08)
[2017-01-21] VITALS (16 sets, daily range): BP systolic 130–148; BP diastolic 76–88; PULSE 62–96; RESP 18; TEMP 97.4–97.8; O2SAT 96–98
[2017-01-21] MEDS: LEVOTHYROXINE SODIUM 50 MCG TAB PO SCH (05:24)
[2017-01-21 06:11] LABS: POTASSIUM 3.7 MEQ/L (3.5-5.1)
[2017-01-21] MEDS: ASPIRIN 325 MG TAB PO SCH (08:11)
[2017-01-21] MEDS: predniSONE 20 MG TAB PO SCH (08:11)
[2017-01-21] MEDS: LACTOBACILLUS ACIDOPHILUS TAB PO SCH (08:11)
[2017-01-21] MEDS: LOSARTAN 50 MG TAB PO SCH (08:12)
[2017-01-21] MEDS: METOPROLOL TARTRATE 50 MG TAB PO SCH (08:12)
[2017-01-21] MEDS: POTASSIUM CHLORIDE 10 MEQ CONTROLLED RELEASE TAB PO SCH (08:12)
[2017-01-21] MEDS: amLODIPine BESYLATE 5 MG TAB PO SCH (08:12)
[2017-01-21] MEDS: SODIUM CHLORIDE 0.9% FLUSH 10 ML FLUSH IV FLUSH SCH (08:13)
[2017-01-21] MEDS ORDERED: FUROSEMIDE 20 MG/2 ML VIAL IV PUSH SCH (09:00)
--- NOTE | 2017-01-21 09:16 | HHI.PR ---
Subjective Remarks Follow-up respiratory failure with hypoxia/sepsis/community-acquired bacteria pneumonia 01/20/17-patient seen and examined; reports significant improvement or shortness of breath and currently on 2 L nasal cannula. Denies any chest pain. No acute event overnight. Vitals stable 01/21/17-patient seen and examined denies any significant shortness of breath and no acute event overnight. Should able to ambulate without any significant shortness of breath. Objective Vitals Vital Signs Date Time Temp Pulse Resp B/P Pulse Ox O2 Delivery O2 Flow Rate FiO2 01/21/17 09:11 98 Nasal Cannula 3.00 01/21/17 09:07 79 01/21/17 08:25 70 01/21/17 07:00 97.8 96 18 148/88 98 01/21/17 07:00 Nasal Cannula 3.00 96 01/21/17 07:00 76 01/21/17 06:04 66 01/21/17 05:41 62 01/21/17 05:32 97.4 68 18 139/79 98 01/21/17 04:01 70 01/21/17 03:48 95 Nasal Cannula 2.00 01/21/17 03:08 64 01/21/17 02:06 64 01/21/17 01:04 66 01/21/17 00:04 66 01/21/17 00:00 95 Nasal Cannula 3.00 01/20/17 23:47 70 20 129/70 99 01/20/17 23:15 64 01/20/17 22:00 72 01/20/17 21:00 95 Nasal Cannula 3.00 01/20/17 20:10 97.7 81 21 136/76 95 01/20/17 18:00 94 01/20/17 17:14 95 Nasal Cannula 3.00 01/20/17 17:00 76 01/20/17 16:00 76 01/20/17 15:00 79 01/20/17 15:00 94 Nasal Cannula 2.00 01/20/17 15:00 98.7 80 20 131/73 95 01/20/17 14:00 72 01/20/17 13:00 72 01/20/17 12:00 77 01/20/17 11:00 95 Nasal Cannula 3.00 01/20/17 11:00 98.6 83 20 141/84 95 I/O 01/20/17 01/20/17 01/20/17 01/21/17 01/21/17 01/21/17 06:59 14:59 22:59 06:59 14:59 22:59 Intake Total 830 ml 240 ml Output Total 300 ml 200 ml 550 ml Balance -300 ml 630 ml -310 ml Intake Oral 480 ml 240 ml IV Total 350 ml Output Urine Total 300 ml 200 ml 550 ml # Bowel Movements 0 Result Diagram: 01/20/17 0407 01/21/17 0349 Imaging Last Impressions Chest X-Ray 01/19/17 1430 Signed Impressions: Service Date/Time: Thursday, January 19, 2017 14:34 - CONCLUSION: Cardiomegaly with bibasilar opacities potentially related to pulmonary edema. Juaquin Kirkpatrick Jr., MD Lung Scan-VQ Nuclear Medicine 01/19/17 0000 Signed Impressions: Service Date/Time: Thursday, January 19, 2017 18:14 - CONCLUSION: Low probability for pulmonary embolism. John Gifford MD Lower Extremity Ultrasound 01/19/17 0000 Signed Impressions: Service Date/Time: Thursday, January 19, 2017 17:12 - CONCLUSION: No evidence of deep venous thrombosis within the bilateral lower extremities. Roverto Cespedes MD Objective Remarks GENERAL: NAD SKIN: Warm and dry. HEAD: Normocephalic. EYES: No scleral icterus. No injection or drainage. NECK: Supple, trachea midline. No JVD or lymphadenopathy. CARDIOVASCULAR: Regular rate and rhythm with II/ LAZARUS RESPIRATORY: Breath sounds equal bilaterally. No accessory muscle use. GASTROINTESTINAL: Abdomen soft, non-tender, nondistended. MUSCULOSKELETAL: No cyanosis, or edema. BACK: Nontender without obvious deformity. No CVA tenderness. Procedures None A/P Problem List: (1) Sepsis ICD Code: A41.9 Status: Acute (2) Community acquired bacterial pneumonia ICD Code: J15.9 Status: Acute (3) Respiratory failure with hypoxia ICD Code: J96.91 Status: Acute (4) Respiratory failure, acute ICD Code: J96.00 Status: Acute Assessment and Plan 76-year-old man with Severe sepsis: Resolved Status post azithromycin and Rocephin IV 1 in ED, continue with antibiotics pending culture report Community-acquired bacteria pneumonia Chest x-ray with finding of bibasilar opacities s/p IV azithromycin and Rocephin 1, continue antibiotics however we'll switch to by mouth azithromycin on discharge sputum culture pending Acute respiratory failure with hypoxia Improved BiPAP when necessary DuoNeb when necessary VQ scan low probability for PE Perform walk test today prior to discharge Acute mild heart failure, unknown type Chest x-ray with finding of possible pulmonary edema Mildly elevated BNP Lasix IV 20 mg daily 2-D echo EF 50-55% Acute renal failure-worsening However secondary to mild acute heart failure; we will hold on IV fluid hydration Monitor BUN and creatinine Other chronic medical conditions Continue outpatient medications DVT prophylaxis: Bilateral SCDs John Marcelo MD Jan 21, 2017 09:16
--- NOTE | 2017-01-21 09:18 | HHI.FF ---
Face to Face Verification Diagnosis: (1) Respiratory failure with hypoxia (2) Respiratory failure, acute (3) Sepsis (4) Community acquired bacterial pneumonia Physical Therapy Order: Evaluate and Treat Home Health Nursing Order: Signs/symptoms of disease process I have seen patient Ehsan Ledesma on 01/21/17. My clinical findings support the need for the requested home health care services because: Patient has SOB I certify that my clinical findings support that this patient is homebound because: Poor cardiac reserve John Marcelo MD Jan 21, 2017 09:17
[2017-01-21] MEDS ORDERED: AZIT500T2 PO (09:20)
[2017-01-21] MEDS ORDERED: POTA-243 PO (09:20)
[2017-01-21] MEDS ORDERED: OXYGENDME NAS.CANULA (11:07)
--- NOTE | 2017-01-21 11:09 | HHI.PR ---
Addendum to Inpatient Note Addendum Reason: Additional Documentation Additional Information Acute hypoxemia :Patient would be requiring home oxygen on discharge as other alternative measures were tried and were ineffective as patient fell respiratory walk test today 01/21/17 John Marcelo MD Jan 21, 2017 11:09
--- NOTE | 2017-01-21 11:12 | HHI.DS ---
Discharge Summary Admission Date Jan 19, 2017 at 16:59 Discharge Date: Jan 21, 2017 Admitting Diagnosis Sepsis with hypoxia (1) Sepsis ICD Code: A41.9 (2) Community acquired bacterial pneumonia ICD Code: J15.9 (3) Respiratory failure with hypoxia ICD Code: J96.91 (4) Respiratory failure, acute ICD Code: J96.00 Procedures None Brief History - From Admission 76 yrs old man with a PMH of COPD, HTN came to the ED for evaluation of worsening symptoms of shortness of breath x several weeks duration associated with dry nonproductive cough without any associated chest pain or febrile episode.Patient denies any BLE edema. CXR in the ED reveals Cardiomegaly with bibasilar opacities potentially related to pulmonary edema. Vitals on admission T 98.6, HR 118, RR 36, BP 158/72 and 77% on RA. Abnormal labs include BNP 134, Lactic acid 2.2, WBC of 14.4 and Bun/Cr 35/2.13. In the ED patient was placed on a BIPAP with improvement of dyspnea CBC/BMP: 01/20/17 0407 01/21/17 0349 Significant Findings Laboratory Tests Test 01/19/17 01/19/17 01/20/17 01/20/17 14:35 14:38 01:30 04:07 Prothrombin Time 12.3 SEC (9.8-11.6) Activated Partial 34.0 SEC Thromboplast Time (24.3-30.1) Chloride Level 108 MEQ/L 110 MEQ/L (98-107) (98-107) Blood Urea Nitrogen 35 MG/DL (7-18) 48 MG/DL (7-18) Creatinine 2.13 MG/DL 2.51 MG/DL (0.60-1.30) (0.60-1.30) Estimat Glomerular Filtration 31 ML/MIN (>89) 25 ML/MIN (>89) Rate Lactic Acid Level 2.2 mmol/L (0.4-2.0) Total Bilirubin 2.8 MG/DL 1.4 MG/DL (0.2-1.0) (0.2-1.0) Total Creatine Kinase 22 U/L (39-308) B-Type Natriuretic Peptide 134 PG/ML (0-100) Albumin 2.5 GM/DL 2.1 GM/DL (3.4-5.0) (3.4-5.0) White Blood Count 14.4 TH/MM3 (4.0-11.0) Red Blood Count 3.91 MIL/MM3 3.46 MIL/MM3 (4.50-5.90) (4.50-5.90) Hemoglobin 11.6 GM/DL 10.5 GM/DL (13.0-17.0) (13.0-17.0) Hematocrit 35.6 % 31.2 % (39.0-51.0) (39.0-51.0) Red Cell Distribution Width 20.6 % 21.0 % (11.6-17.2) (11.6-17.2) Neutrophils (%) (Auto) 89.0 % 93.6 % (16.0-70.0) (16.0-70.0) Lymphocytes (%) (Auto) 3.7 % 3.4 % (9.0-44.0) (9.0-44.0) Neutrophils # (Auto) 12.9 TH/MM3 10.3 TH/MM3 (1.8-7.7) (1.8-7.7) Lymphocytes # (Auto) 0.5 TH/MM3 0.4 TH/MM3 (1.0-4.8) (1.0-4.8) Blood Gas HCO3 19 mmol/L (22-26) Blood Gas Base Excess -3.4 mmol/L (-2-2) Blood Gas Oxygen Saturation 80 % (90-100) Arterial Blood pH 7.54 (7.380-7.420) Arterial Blood Partial 22 mmHg (38-42) Pressure CO2 Arterial Blood Partial 43 mmHG Pressure O2 (61-120) Urine Turbidity CLOUDY (CLEAR) Urine Protein GREATER THAN 600 mg/dL (NEG-TRACE) Urine Glucose (UA) 70 mg/dL (NEG) Urine Occult Blood SMALL (NEG) Urine WBC 8 /hpf (0-5) Urine Bacteria RARE /hpf (NONE) Urine Mucus FEW /lpf (OCC) Neutrophils % (Manual) 74 % (16-70) Band Neutrophils % 18 % (0-6) Lymphocytes % 6 % (9-44) Neutrophils # (Manual) 10.3 TH/MM3 (1.8-7.7) Metamyelocytes 2 % (0-1) Dohle Bodies PRESENT (NONE SEEN) Ovalocytes 1+ (NORMAL) Carbon Dioxide Level 19.6 MEQ/L (21.0-32.0) Random Glucose 148 MG/DL (74-106) Calcium Level 8.2 MG/DL (8.5-10.1) Aspartate Amino Transf 13 U/L (15-37) (AST/SGOT) Total Protein 5.7 GM/DL (6.4-8.2) Test 01/21/17 03:49 Chloride Level 111 MEQ/L (98-107) Carbon Dioxide Level 19.0 MEQ/L (21.0-32.0) Blood Urea Nitrogen 61 MG/DL (7-18) Creatinine 2.39 MG/DL (0.60-1.30) Estimat Glomerular Filtration 27 ML/MIN (>89) Rate Random Glucose 107 MG/DL (74-106) Imaging Last Impressions Chest X-Ray 01/19/17 1430 Signed Impressions: Service Date/Time: Thursday, January 19, 2017 14:34 - CONCLUSION: Cardiomegaly with bibasilar opacities potentially related to pulmonary edema. Juaquin Kirkpatrick Jr., MD Lung Scan-V Nuclear Medicine 01/19/17 0000 Signed Impressions: Service Date/Time: Thursday, January 19, 2017 18:14 - CONCLUSION: Low probability for pulmonary embolism. John Gifford MD Lower Extremity Ultrasound 01/19/17 0000 Signed Impressions: Service Date/Time: Thursday, January 19, 2017 17:12 - CONCLUSION: No evidence of deep venous thrombosis within the bilateral lower extremities. Roverto Cespedes MD PE at Discharge GENERAL: NAD SKIN: Warm and dry. HEAD: Normocephalic. EYES: No scleral icterus. No injection or drainage. NECK: Supple, trachea midline. No JVD or lymphadenopathy. CARDIOVASCULAR: Regular rate and rhythm with II/ LAZARUS RESPIRATORY: Breath sounds equal bilaterally. No accessory muscle use. GASTROINTESTINAL: Abdomen soft, non-tender, nondistended. MUSCULOSKELETAL: No cyanosis, or edema. BACK: Nontender without obvious deformity. No CVA tenderness. Hospital Course Patient was admitted secondary to severe sepsis due to community-acquired pneumonia for which she was started on IV antibiotics including Rocephin and azithromycin. Initially secondary to acute respiratory failure with hypoxia patient was placed on BiPAP and responded well and continued on nasal cannula, however prior to discharge he failed Respiratory walk test for which patient has been prescribed nasal cannula 2 L oxygen. He was also found to be in CHF exacerbation and treated initially with IV diuretic with significant improvement of shortness of breath. Prior to discharge, patient conditions improved and vitals remained stable. Physical therapy was consulted. DVT and GI prophylaxis were provided. He will be discharged home on azithromycin 500 mg by mouth 2 more days. Pt Condition on Discharge: Stable Discharge Disposition: Disch w/ Home Health Serv Discharge Time: > 30 minutes Discharge Instructions DIET: Follow Instructions for: Heart Healthy Diet Activities you can perform: Regular-No Restrictions Follow up Referrals: PCP Follow-up - 1 Week New Medications: Azithromycin (Azithromycin) 500 Mg Tab 500 MG PO DAILY Infection #2 Ref 0 TAB Oxygen (O2) (Oxygen (O2)) Device 2 LITER JYOTI.CANULA CONTINUOUS Oxygen Concentrator Portable Gaseous 2 L/min via Nasal Canula Continuous For 99 months Prevent Hypoxemia #2 CYLINDER Potassium Chloride ER (Klor-Con 10) 10 Meq Tab 10 MEQ PO DAILY Electrolyte Replacement #30 TAB Continued Medications: Amlodipine (Amlodipine) 5 Mg Tab 5 MG PO DAILY Blood Pressure Management #30 Ref 0 TAB Aspirin (Aspirin) 325 Mg Tab 325 MG PO DAILY #30 Ref 0 TAB Atorvastatin (Atorvastatin) 40 Mg Tab 40 MG PO HS Cholesterol Management #30 Ref 0 TAB Cholecalciferol (Vitamin D3) 1,000 Unit Tab 1000 UNITS PO DAILY Nutritional Supplement #1 Ref 0 BOTTLE Furosemide (Furosemide) 40 Mg Tab 40 MG PO DAILY #30 Ref 0 TAB Levothyroxine (Levothyroxine) 50 Mcg Tab 50 MCG PO DAILY Thyroid #30 Ref 0 TAB Losartan (Losartan) 50 Mg Tab 50 MG PO DAILY Blood Pressure Management #30 Ref 0 TAB Magnesium Oxide (Magnesium Oxide) 400 Mg Cap Unknown Dose Metoprolol Tartrate (Metoprolol Tartrate) 50 Mg Tab 50 MG PO BID #60 Ref 0 TAB Prednisone (Prednisone) 20 Mg Tab 20 MG PO DAILY Ref 0 TAB Sodium Bicarbonate (Sodium Bicarbonate) 650 Mg Tab 650 MG PO BIDPC #60 Ref 0 TAB Tamsulosin (Tamsulosin) 0.4 Mg Cap 0.4 MG PO HS Manage Prostate Problems #30 Ref 0 CAP Discontinued Medications: Metoprolol Tartrate (Metoprolol Tartrate) 50 Mg Tab 50 MG PO DAILY #30 Ref 0 TAB John Marcelo MD Jan 21, 2017 11:12
[2017-01-22] MEDS ORDERED: FUROSEMIDE 40 MG TAB PO SCH (09:00)
== END 2017-01-21 14:48 | disposition home or self-care (01) | DRG 871 ==
LOC: NEPC 14:16 → NEDA 16:59 → NEDH 20:59 → HCIS 01-20 11:54
PROVIDERS: ADMIT Hospitalist; ATTEND Hospitalist
DX: A41.9 Sepsis, unspecified organism (principal); J96.91 Respiratory failure, unspecified with hypoxia; I11.0 Hypertensive heart disease with heart failure; J15.9 Unspecified bacterial pneumonia; N17.9 Acute kidney failure, unspecified; I50.9 Heart failure, unspecified; Z99.81 Dependence on supplemental oxygen; J44.0 Chronic obstructive pulmonary disease with (acute) lower respiratory infection; R65.20 Severe sepsis without septic shock
CPT/HCPCS: 36600; 71010; 78582; 80048; 80053; 81001; 82550; 82805; 83605; 83735; 83880; 84484; 85007; 85025; 85027; 85610; 85730; 87040; 87086; 87205; 87804; 93005; 93306; 93970; 94002; 94620; 94640; 94664; 96365; 96368; 96375; A9540; A9567; J0456; J0696; J1940; J2930; J7050; J7512